=== PATIENT | female | born 1970 | race Caucasian/White ===

== ENCOUNTER 2016-11-13 18:08 | Emergency (ER) | payer MEDICAID ==
[~2016-11-13] VITALS: Wt 81.8 kg
[2016-11-13] MEDS ORDERED: KETOROLAC 60 MG INJ IM STA (18:55)
[2016-11-13 19:10] LABS: URINE BLOOD (Dip) POC 2+ (NEGATIVE)
[2016-11-13] MEDS ORDERED: TRAM50TA2 PO (19:29)
[2016-11-13] MEDS ORDERED: IBUP-1542 PO (19:29)
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
--- NOTE | 2016-11-13 20:43 | RADRPT ---
PROCEDURE: XR Lumbar Spine. CLINICAL INDICATION: Low back pain. TECHNIQUE: AP and lateral views of the lumbar spine were obtained. COMPARISON: None. FINDINGS: Mineralization is within normal limits. Vertebral bodies are normal in height. No fracture is iden tified. Lumbar lordosis is preserved. No vertebral subluxation is seen. The intervertebral discs are normal in height except for L4-5 and L5-S1 which are mildly narrowed and have mild anterior spon dylosis. Paraspinal contours are unremarkable. RPTAT:HJJR IMPRESSION: Mild disk narrowing at L4-5 and L5-S1 with associated minimal anterior spondylosis at these levels. Physician Niki Date Time Electronically viewed and signed by Physician Niki on 11/13/2016 20:43 JR/
== END 2016-11-13 19:39 | disposition home or self-care (01) ==
LOC: FTE 18:08
DX: M54.42 Lumbago with sciatica, left side (principal)
CPT/HCPCS: 72100; 81003; J1885; 96372

== ENCOUNTER 2017-09-04 12:00 | Emergency (ER) | END 2017-09-04 15:40 | disposition home or self-care (01) ==